=== PATIENT | female | born 1980 | race Two or more races ===

== ENCOUNTER 2016-08-22 22:04 | Emergency (ER) | payer SELFPAY ==
[2016-08-22] MEDS ORDERED: VANCOMYCIN HCL INJ 1000 MG VIAL IV ONE (22:21)
[2016-08-22] MEDS ORDERED: NORMAL SALINE 1000 ML 1,000 ML IV ONE (22:22)
[2016-08-22] MEDS ORDERED: PIPERACILLIN/TAZOBACTAM 3.375 GM VIAL IV ONE (22:22)
--- NOTE | 2016-08-22 22:27 | ER Document Report ---
ED General - General Stated Complaint: POSSIBLE INFECTION Notes: Patient is a 36-year-old female who presents with complaint of possible abdominal infection. Patient had surgery done a week ago Thursday and . She had her lap band removed. Her LAP-BAND was initially placed in [place] as well. Patient is having fevers. She says she start from sick on Thursday. Then started having fevers. Her doctor [place] told her still okay to come home. Since, now is gone worse and now she's had pus coming from her lower laparoscopic incision with redness around the wound and she's had fevers. Fever of 101.8 when paramedics arrived. Worsening pain tonight. Past Medical History - Social History Smoking Status: Never Smoker Frequency of alcohol use: None Drug Abuse: None Family History: Reviewed & Not Pertinent Review of Systems - Review of Systems Notes: My Normal Review Basic REVIEW OF SYSTEMS: CONSTITUTIONAL : Denies fever, chills, or sweats. Denies recent illness. EENT: Denies eye, ear, throat, or mouth pain or symptoms. Denies nasal or sinus congestion. RESPIRATORY: Denies cough, cold, or chest congestion. Denies shortness of breath, difficulty breathing, or wheezing. GASTROINTESTINAL: Moderate abdominal pain. Denies nausea, vomiting, or diarrhea. Denies constipation. Last BM: GENITOURINARY: Denies difficulty urinating, painful urination, burning, frequency, or blood in urine. MUSCULOSKELETAL: Denies neck or back pain or joint pain or swelling. SKIN: Denies rash or skin lesions. NEUROLOGICAL: Denies altered mental status or loss of consciousness. Denies headache. Denies weakness or paralysis or loss of use of either side. Denies problems with gait or speech. Denies sensory or motor loss. ALL OTHER SYSTEMS REVIEWED AND NEGATIVE. Physical Exam - Vital signs Vitals: Temp Pulse Resp BP Pulse Ox 101.8 F H 111 H 18 107/69 93 08/22/16 22:59 08/22/16 22:59 08/22/16 22:59 08/22/16 22:59 08/22/16 22:59 - Notes Notes: General Appearance: Well nourished, alert, cooperative, no acute distress, moderate obvious discomfort. Vitals: reviewed, See vital signs table. Head: no swelling or tenderness to the head Eyes: PERRL, EOMI, Conjuctiva clear Mouth: No decreasd moisture Lungs: No wheezing, No rales, No rhonci, No accessory muscle use, good air exchange bilaterally. Heart: Normal rate, Regular rythm, No murmur, no rub Abdomen: Normal BS, soft, No rigidity, moderate abdominal tenderness over the ventral abdomen, No guarding, no rebound, no abdominal masses, no organomegaly. Patient is for laparoscopic incisions. The most inferior incision is red and erythematous with purulent discharge. Extremities: strength 5/5 in all extremities, good pulses in all extremities, no swelling or tenderness in the extremities, no edema. Skin: warm, dry, appropriate color, no rash Neuro: speech clear, oriented x 3, normal affect, responds appropriately to questions. Course - Re-evaluation Re-evalutation: 08/22/16 23:51 Patient was seen by the surgeon, Dr. Wagner. He did incise and open of the wound. He did pack the wound with gauze. Says that the patient be placed on antibiotics and discharged home to follow-up in the ER in 2 days for wound check and then to follow-up early next week at the surgery clinic. 08/23/16 05:51 - Vital Signs Vital signs: Temp Pulse Resp BP Pulse Ox 100.8 F H 111 H 17 102/74 96 08/23/16 00:30 08/22/16 22:59 08/23/16 03:30 08/23/16 03:30 08/23/16 03:30 - Laboratory Result Diagrams: 08/22/16 22:57 08/22/16 22:57 Laboratory results interpreted by me: 08/22/16 08/22/16 22:57 22:57 WBC 14.9 H RBC 3.49 L Hgb 8.7 L Hct 26.3 L MCV 75 L MCH 24.9 L RDW 18.4 H Plt Count 487 H Band Neutrophils % 2 L Abs Neuts (Manual) 11.6 H Sodium 135.3 L Chloride 97 L Albumin 3.4 L - Transfer of Care Notes: 08/23/16 05:51 Patient is feeling better on reevaluation. Her fever is down. Heart rate is improved. Blood pressure is normal. Doctor tomorrow did open up the incision site and drain the abscess. Patient to return to ER in 2 days for recheck the wound. I encourage her to return to the ER immediately if she has recurrent fevers not responding to Tylenol, vomiting, or if she feels that she is worsening in any way. Patient agrees with plan and will be discharged home. Dictation of this chart was performed using voice recognition software; therefore, there may be some unintended grammatical errors. Discharge - Discharge Clinical Impression: Post op infection Qualifiers: Encounter type: initial encounter Qualified Code(s): T81.4XXA - Infection following a procedure, initial encounter Condition: Good Disposition: HOME, SELF-CARE Additional Instructions: Please return to the ER immediately if you develop recurrent fevers not responding to tylenol, vomiting, or if you feel that you are worsening. Please take the antibiotics we prescribed you. Please return to ER in 2 days so we can reevaluate your wound. Please make an appointment Thursday to follow- up with the surgery clinic. Please stop taking the antibiotics that were prescribed in [place]. Prescriptions: Cephalexin [Keflex] 500 mg PO TID #21 capsule Clindamycin HCl 300 mg PO ASDIR #56 capsule Referrals: JESSICA DANIELS MD [ACTIVE STAFF] - 08/25/16
[2016-08-22] MEDS ORDERED: MORPHINE SULFATE 10 MG/ML INJ IV ONE (22:37)
[2016-08-22 23:14] LABS: HEMATOCRIT 26.3 % (36.0-47.0); HEMOGLOBIN 8.7 g/dL (12.0-15.5); HGB HCT DIFFERENCE -0.2; MEAN CORPUSCULAR HEMOGLOBIN 24.9 pg (27.0-33.4); MEAN CORPUSCULAR HGB CONC 33.1 g/dL (32.0-36.0); MEAN CORPUSCULAR VOLUME 75 fl (80-97); RED BLOOD COUNT 3.49 10^6/uL (3.72-5.28); RED CELL DISTRIBUTION WIDTH 18.4 % (11.5-14.0); WHITE BLOOD COUNT 14.9 10^3/uL (4.0-10.5)
[2016-08-22 23:27] LABS: ALANINE AMINOTRANSFERASE 23 U/L (9-52); ALBUMIN 3.4 g/dL (3.5-5.0); ALKALINE PHOSPHATASE 111 U/L (38-126); ANION GAP 11 (5-19); ASPARTATE AMINO TRANSFERASE 30 U/L (14-36); BILIRUBIN,DIRECT 0.2 mg/dL (0.0-0.4); BILIRUBIN,TOTAL 0.8 mg/dL (0.2-1.3); BLOOD UREA NITROGEN 10 mg/dL (7-20); CALCIUM 9.1 mg/dL (8.4-10.2); CARBON DIOXIDE 27 mmol/L (22-30); CHLORIDE 97 mmol/L (98-107); CREATININE RESULT 0.52 mg/dL (0.52-1.25); GLUCOSE 106 mg/dL (75-110); SODIUM 135.3 mmol/L (137-145); TOTAL PROTEIN 6.9 g/dL (6.3-8.2)
[2016-08-22 23:36] LABS: BAND NEUTROPHILS % (MANUAL) 2 % (3-5); BASOPHILS % (MANUAL) 1 % (0-2); EOSINOPHILS % (MANUAL) 0 % (0-6); LYMPHOCYTES % (MANUAL) 16 % (13-45); TOTAL CELLS COUNTED 100
[2016-08-22 23:40] LABS: HYPOCHROMASIA 1+; MICROCYTOSIS 1+; POLYCHROMASIA 1+
[2016-08-22 23:41] LABS: ANISOCYTOSIS 2+; ROULEAUX 1+; STOMATOCYTES SLIGHT
--- NOTE | 2016-08-23 00:28 | OPERATIVE REPORT E ---
Operative Report NAME: SHAKEEL COTTON : 1980 AGE: 36Y DATE OF SURGERY: 08/23/2016 ROOM: DATE OF VISIT: August 23, 2016. HISTORY OF PRESENT ILLNESS AND PROCEDURE: This 36-year-old female went to [facility] on August 16, to have removal of a lap band. The patient underwent this procedure and was sent home and flew back to the [facility] on August 18. The patient returned to the [facility] on August 18, and noted tenderness and redness of the wound that was most inferior. The patient presented to the emergency room complaining of fever and redness and purulent discharge from the most inferior of the laparoscopic wounds. On examination, the most inferior of the 5 laparoscopic incisions was red, tender with increased warmth and fluctuance. The patient states that there was drainage when she sat up at home. There is a small amount of purulent noted and it is foul smelling. IMPRESSION: WOUND INFECTION. At the time of my visit, I recommended that we remove the stitches and open the wound to drain the pus. The patient's sutures were removed and the wound was opened and approximately 15-20 mL of green, foul smelling purulent material emanated. The infection extended down to the fascia wall only and after expressing all the pus and irrigating the wound with normal saline there was no further discharge. The wound was then packed with 1/2 inch plain Iodoform packing and covered with 4 x 4 and tape. The patient tolerated this procedure well and will be seen in the emergency room for wound check next week. DICTATING PHYSICIAN: KORINA TSANG M.D. [id number] PHY#: [id number] ID: [id number] JOB#: [id number] ACCT: [id number] cc:KORINA TSANG M.D. >
[2016-08-23] MEDS ORDERED: ONDANSETRON HCL INJ/PF 4 MG/2 ML SDV IV ONE (01:20)
[2016-08-23] MEDS ORDERED: NORMAL SALINE 1000 ML 1,000 ML IV ONE (01:20)
[2016-08-23] MEDS ORDERED: HYDROCODONE/ACETAMINOPHEN 5-325 MG TABLET PO ONE (03:05)
[2016-08-23] MEDS ORDERED: HYDROCODONE/ACETAMINOPHEN 5-325 MG 6 TAB/DSPK PO PRN (03:05)
[2016-08-23 03:31] VITALS: BP 102/74
== END 2016-08-23 03:49 | disposition home or self-care (01) ==
LOC: ER 22:04
PROC: 0J980ZZ Drainage of Abdomen Subcutaneous Tissue and Fascia, Open Approach (ICD-10-PCS; principal; 2016-08-22)
DX: T81.4XXA Infection following a procedure, initial encounter (principal); R50.9 Fever, unspecified
CPT/HCPCS: 99284; 96361; 96375; 96365; 96366; 96367; 36415; 87040; 87070; 87205; 85025; 87075; 87077; 80053; 10180; J2270; J7030; J3370; J2543

== ENCOUNTER 2016-08-23 20:28 | Inpatient (IN) | payer SELFPAY ==
[2016-08-23] MEDS ORDERED: ONDANSETRON 4 MG TAB.RAPDIS PO ONE (20:37)
[2016-08-23] MEDS ORDERED: IBUPROFEN 800 MG TABLET PO ONE (20:37)
--- NOTE | 2016-08-23 20:43 | ER Document Report ---
ED Medical Screen (RME) - General Chief Complaint: Wound Recheck Stated Complaint: REVISIT WOUND CHECK Mode of Arrival: Wheelchair Information source: Patient Notes: Patient returns emergency department with abdominal pain wound infection. She reports foul-smelling discharge. Patient was evaluated and treated for same this morning. Patient reports she felt better after leaving but started having pain again this evening. Took norco at 1830. Patient temp was 102.3. Temp here 101. 7. Pt had lap band reversal done last week in [place]. I have greeted and performed a rapid initial assessment of this patient. A comprehensive ED assessment and evaluation of the patient, analysis of test results and completion of the medical decision making process will be conducted by additional ED providers. TRAVEL OUTSIDE OF THE [place] IN LAST 30 DAYS: Yes COUNTRY TRAVELED TO/FROM: [place] Past Medical History Endocrine Medical History: Reports: Hx Diabetes Mellitus Type 2 Renal/ Medical History: Denies: Hx Peritoneal Dialysis Past Surgical History: Reports: Hx Abdominal Surgery - lap band 2008, removed 2016, Hx Appendectomy, Hx Cholecystectomy, Hx Gynecologic Surgery - ovarian cyst rupture repair, Hx Oral Surgery - wisdom, Hx Tubal Ligation - Immunizations Hx Diphtheria, Pertussis, Tetanus Vaccination: Yes Physical Exam - Vital signs Vitals: Temp Pulse Resp BP Pulse Ox 101.7 F H 133 H 20 114/76 98 08/23/16 20:33 08/23/16 20:33 08/23/16 20:33 08/23/16 20:33 08/23/16 20:33 Course - Vital Signs Vital signs: Temp Pulse Resp BP Pulse Ox 101.7 F H 133 H 20 114/76 98 08/23/16 20:33 08/23/16 20:33 08/23/16 20:33 08/23/16 20:33 08/23/16 20:33
[2016-08-23 21:15] LABS: MEAN CORPUSCULAR HEMOGLOBIN 24.9 pg (27.0-33.4); MEAN CORPUSCULAR HGB CONC 33.4 g/dL (32.0-36.0); MEAN CORPUSCULAR VOLUME 75 fl (80-97); RED BLOOD COUNT 3.62 10^6/uL (3.72-5.28); RED CELL DISTRIBUTION WIDTH 18.8 % (11.5-14.0); WHITE BLOOD COUNT 16.7 10^3/uL (4.0-10.5)
[2016-08-23 21:22] LABS: APPEARANCE,URINE CLEAR; BILIRUBIN,URINE NEGATIVE (NEGATIVE); GLUCOSE, URINE NEGATIVE (NEGATIVE); KETONES,URINE NEGATIVE (NEGATIVE); LEUKOCYTE ESTERASE,URINE NEGATIVE (NEGATIVE); NITRITE,URINE NEGATIVE (NEGATIVE); PROTEIN,URINE NEGATIVE (NEGATIVE); UROBILINOGEN,URINE NEGATIVE mg/dL (<2.0)
[2016-08-23 21:27] LABS: ALANINE AMINOTRANSFERASE 35 U/L (9-52); ALBUMIN 3.6 g/dL (3.5-5.0); ALKALINE PHOSPHATASE 168 U/L (38-126); ANION GAP 14 (5-19); ASPARTATE AMINO TRANSFERASE 30 U/L (14-36); BILIRUBIN,DIRECT 0.2 mg/dL (0.0-0.4); BILIRUBIN,TOTAL 0.7 mg/dL (0.2-1.3); BLOOD UREA NITROGEN 8 mg/dL (7-20); CALCIUM 9.4 mg/dL (8.4-10.2); CARBON DIOXIDE 25 mmol/L (22-30); CHLORIDE 100 mmol/L (98-107); CREATININE RESULT 0.55 mg/dL (0.52-1.25); GLUCOSE 144 mg/dL (75-110); POTASSIUM 3.9 mmol/L (3.6-5.0); SODIUM 139.1 mmol/L (137-145); TOTAL PROTEIN 7.2 g/dL (6.3-8.2)
[2016-08-23 21:33] LABS: BAND NEUTROPHILS % (MANUAL) 2 % (3-5); BASOPHILS % (MANUAL) 0 % (0-2); EOSINOPHILS % (MANUAL) 2 % (0-6); LYMPHOCYTES % (MANUAL) 7 % (13-45); TOTAL CELLS COUNTED 100
[2016-08-23 21:35] LABS: POLYCHROMASIA SLIGHT; TOXIC GRANULATION SLIGHT
[2016-08-23 21:36] LABS: ANISOCYTOSIS 2+; HYPOCHROMASIA 1+; MICROCYTOSIS 1+
[2016-08-23] MEDS ORDERED: PIPERACILLIN/TAZOBACTAM 3.375 GM VIAL IV ONE (22:59)
[2016-08-23] MEDS ORDERED: RINGERS SOLUTION,LACTATED 1,000 ML IV ONE (22:59)
[2016-08-23] MEDS ORDERED: VANCOMYCIN HCL INJ 1000 MG VIAL IV ONE (22:59)
[2016-08-23] MEDS ORDERED: MORPHINE SULFATE 10 MG/ML INJ IV ONE (23:05)
[2016-08-23] MEDS ORDERED: ONDANSETRON HCL INJ/PF 4 MG/2 ML SDV IV ONE (23:05)
--- NOTE | 2016-08-23 23:06 | ER Document Report ---
ED General - General Chief Complaint: Wound Recheck Stated Complaint: REVISIT WOUND CHECK Mode of Arrival: Wheelchair Information source: Patient, [facility] Records Notes: This is a 36-year-old female with a history of diet-controlled diabetes who presents as a return visit for worsening symptoms from a postop wound infection on her abdomen. Patient is post op day #8 status post laparoscopic LAP-BAND reversal done in [place]. She presented to the emergency department last night with concern for abdominal pain and fever. At that time it was noted that one of her left scalp incision was infected with an abscess. The incision was opened and purulent drainage was expressed. The wound was packed and patient was started on oral antibiotics to include clindamycin and Keflex. She states that she has been compliant with her antibiotics however this evening at about 1830 she developed a fever of 102.3 at home. Also she has had increasing lower abdominal pain which she states has become much worse tonight. She has had nausea but no vomiting. She did have a bowel movement earlier today which she describes as hard. Her last oral intake was at about 1630 tonight and was a few bites of chicken and mashed potatoes. TRAVEL OUTSIDE OF THE [place] IN LAST 30 DAYS: Yes COUNTRY TRAVELED TO/FROM: [place] - Related Data Allergies/Adverse Reactions: No Known Allergies Allergy (Unverified 08/23/16 23:04) Past Medical History - General Information source: Patient - Social History Smoking Status: Never Smoker Chew tobacco use (# tins/day): No Frequency of alcohol use: None Drug Abuse: None Family History: Reviewed & Not Pertinent Patient has suicidal ideation: No Patient has homicidal ideation: No Endocrine Medical History: Reports: Hx Diabetes Mellitus Type 2 Renal/ Medical History: Denies: Hx Peritoneal Dialysis Past Surgical History: Reports: Hx Abdominal Surgery - lap band 2008, removed 2016, Hx Appendectomy, Hx Cholecystectomy, Hx Gynecologic Surgery - ovarian cyst rupture repair, Hx Oral Surgery - wisdom, Hx Tubal Ligation - Immunizations Hx Diphtheria, Pertussis, Tetanus Vaccination: Yes Review of Systems - Review of Systems Notes: REVIEW OF SYSTEMS: CONSTITUTIONAL : As per history of present illness EENT: Denies eye, ear, throat, or mouth pain or symptoms. Denies nasal or sinus congestion. CARDIOVASCULAR: Denies chest pain. RESPIRATORY: Denies cough, cold, or chest congestion. Denies shortness of breath, difficulty breathing, or wheezing. GASTROINTESTINAL: As per history of present illness GENITOURINARY: Mild dysuria 1 day. MUSCULOSKELETAL: Denies neck or back pain or joint pain or swelling. SKIN: Denies rash or skin lesions. HEMATOLOGIC : Denies easy bruising or bleeding. LYMPHATIC: Denies swollen, enlarged glands. NEUROLOGICAL: Denies altered mental status or loss of consciousness. Denies headache. PSYCHIATRIC: Denies anxiety or stress or depression. ALL OTHER SYSTEMS REVIEWED AND NEGATIVE. Physical Exam - Vital signs Vitals: Temp Pulse Resp BP Pulse Ox 101.7 F H 133 H 20 114/76 98 08/23/16 20:33 08/23/16 20:33 08/23/16 20:33 08/23/16 20:33 08/23/16 20:33 - Notes Notes: PHYSICAL EXAMINATION: GENERAL: Somewhat ill appearing and pale adult female who is pleasant and conversant and in no acute distress at this time. HEAD: Atraumatic, normocephalic. EYES: Pupils equal round and reactive to light, extraocular movements intact, sclera anicteric, conjunctiva are normal. ENT: nares patent, oropharynx clear without exudates. Mucous membranes somewhat dry. NECK: Normal range of motion, supple without lymphadenopathy LUNGS: Breath sounds clear to auscultation bilaterally and equal. No wheezes rales or rhonchi. HEART: Tachycardic rate, Regular rhythm without murmurs ABDOMEN: Soft, normoactive bowel sounds. Diffuse mild tenderness to palpation somewhat worse in the lower abdomen, but no guarding rebound or rigidity. No signs of peritonitis. Midline trochar site has been opened and packed and there is evidence of purulent drainage on the bandage. There is also a 3 cm area of surrounding erythema and induration. EXTREMITIES: Normal range of motion, no pitting or edema. NEUROLOGICAL: Cranial nerves grossly intact. No gross focal motor or sensory deficits appreciated. PSYCH: Normal mood, normal affect. SKIN: Warm, pale, normal turgor, no rashes or lesions noted. Course - Re-evaluation Re-evalutation: 08/23/16 23:05 Patient with clinical worsening despite oral antibiotics. At this time will initiate IV fluids, IV antibiotics, and proceed with CT of abdomen and pelvis. 08/24/16 00:[address] results with the surgeon chronic disease epidemiologist who will admit patient to the hospital - Vital Signs Vital signs: Temp Pulse Resp BP Pulse Ox 98.8 F 76 14 117/68 97 08/24/16 07:31 08/24/16 08:01 08/24/16 08:01 08/24/16 08:01 08/24/16 08:01 - Laboratory Result Diagrams: 08/23/16 20:55 08/23/16 20:55 Laboratory results interpreted by me: 08/23/16 08/23/16 08/23/16 20:55 20:55 20:55 WBC 16.7 H RBC 3.62 L Hgb 9.0 L Hct 27.0 L MCV 75 L MCH 24.9 L RDW 18.8 H Plt Count 550 H Seg Neuts % (Manual) 86 H Band Neutrophils % 2 L Lymphocytes % (Manual) 7 L Monocytes % (Manual) 2 L Metamyelocytes % 1 H Abs Neuts (Manual) 14.9 H Glucose 144 H Alkaline Phosphatase 168 H Urine Blood SMALL H Crossmatch 08/24/16 01:22 WBC RBC Hgb Hct MCV MCH RDW Plt Count Seg Neuts % (Manual) Band Neutrophils % Lymphocytes % (Manual) Monocytes % (Manual) Metamyelocytes % Abs Neuts (Manual) Glucose Alkaline Phosphatase Urine Blood Crossmatch See Detail Discharge - Discharge Clinical Impression: Post op infection Qualifiers: Encounter type: initial encounter Qualified Code(s): T81.4XXA - Infection following a procedure, initial encounter Postoperative intra-abdominal abscess Qualifiers: Encounter type: initial encounter Qualified Code(s): T81.4XXA - Infection following a procedure, initial encounter Condition: Stable Disposition: ADMITTED INPATIENT Admitting Provider: Surgicalist - Dr Pack Unit Admitted: Telemetry
[2016-08-24] MEDS ORDERED: POTASSI CL 20 MEQ/D5-1/2NS 1L 1000 ML IV PRN (01:24)
[2016-08-24] MEDS ORDERED: MORPHINE SULFATE 10 MG/ML INJ IV PRN ×3 (01:25→06:58)
[2016-08-24] MEDS ORDERED: ONDANSETRON HCL INJ/PF 4 MG/2 ML SDV IV PRN ×2 (01:27→06:58)
[2016-08-24] MEDS ORDERED: PIPERACILLIN/TAZOBACTAM 3.375 GM VIAL IV PRN (01:31)
[2016-08-24] MEDS ORDERED: HYDROMORPHONE HCL INJ/PF 2 MG/ML AMPULE ONE (05:44)
[2016-08-24] MEDS ORDERED: FENTANYL CITRATE INJ/PF 100 MCG/2 ML AMPUL ONE (05:44)
[2016-08-24] MEDS ORDERED: ACETAMINOPHEN 100 ML IV ONE (05:45)
[2016-08-24] MEDS ORDERED: MIDAZOLAM 2 MG/2 ML INJ ONE (05:45)
[2016-08-24] MEDS ORDERED: PROPOFOL INJ 200 MG/20 ML VIAL IV ONE (05:45)
[2016-08-24] MEDS ORDERED: EPHEDRINE SULFATE INJ 50 MG/1 ML AMPULE ONE (05:45)
[2016-08-24] MEDS ORDERED: PROMETHAZINE HCL INJ 25 MG/1 ML VIAL IV PRN ×2 (06:58)
[2016-08-24] MEDS ORDERED: MEPERIDINE HCL/PF INJ 25 MG/1 ML DISP.SYRIN IV PRN (06:58)
[2016-08-24] MEDS ORDERED: DIPHENHYDRAMINE HCL 50 MG/ML VIAL IV PRN (06:58)
[2016-08-24] MEDS ORDERED: FENTANYL CITRATE INJ/PF 100 MCG/2 ML AMPUL IV PRN ×3 (06:58)
[2016-08-24] MEDS ORDERED: DEXMEDETOMIDINE INJ 80 MCG/20 ML VIAL IV ONE (07:57)
--- NOTE | 2016-08-24 09:03 | HISTORY AND PHYSICAL E ---
History and Physical NAME: SHAKEEL COTTON : 1980 AGE: 36Y ADMITTED: 08/24/2016 ROOM: 425 CHIEF COMPLAINT: This pleasant female patient unfortunately presented to the emergency room. Actually on Thursday, she came here for an apparent abdominal wound infection. 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 HISTORY OF PRESENT ILLNESS: She had a history of gastric laparoscopic Lap-Band for weight loss surgery and then she had laparoscopic Lap-Band removal, was done in [place], she traveled back. It was done almost eight or nine days now and had a wound infection, drained in the emergency room, sent back home, now came back with increasing fever, pain, and not feeling well. Notes increasing abdominal pain in the mid abdomen. PAST MEDICAL HISTORY: History of obesity and she had weight loss surgery in [place], Lap-Band. Other surgeries, she had Lap-Band in 2008, removal nine days ago. 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 No other medical history. SURGICAL HISTORY: As I described. FAMILY HISTORY: Nothing relevant. REVIEW OF SYSTEMS: As per examination. PHYSICAL EXAMINATION: VITAL SIGNS: She had a temperature of 101 in the emergency room. vitals when she came in was 139. After giving fluids, it came down to 90. Blood pressure remained stable now, 110 systolic. HEAD AND NECK: No lymphadenopathy. No thyromegaly. RESPIRATORY: Both lungs are clear to auscultation. CARDIOVASCULAR: Both sounds are regular. No murmurs. No gallops. ABDOMEN: Soft. Tender in the mid abdomen with an open wound draining pus. DIAGNOSTICS: She had labs, which revealed white count of 16.7, hemoglobin 9.0. Serum creatinine, BMP appeared to be normal *------*. The CT scan of abdomen and pelvis done in the emergency room revealed there is abdominal wall *------* soft tissue abscess extending from distal left of midline into the rectus abdominis muscle into upper abdomen measuring about 6 to 7 cm. Even though there is no abscess very close to the stomach, there is an anterior left upper quadrant abscess about 11 cm. Basically, she has an intraabdominal abscess extending in the left upper quadrant area extending to the intraabdominal muscles. IMPRESSION: Overall, she has intraabdominal abscess in the closed abdominal wall. I would be concerned about a gastric leak ulcer at this point. Since she is septic and she has no primary surgeon here, I think she will need an immediate intervention, so I am admitting to the hospital, starting on Zosyn IV, resuscitation, plan for a laparoscopy, drainage, abdominal wall drainage of abscesses. Care plan explained to the patient and the patient's family. DICTATING PHYSICIAN: BILL GUILLEN M.D. [id number] PHY#: [id number] ID: [id number] JOB#: [id number] ACCT: [id number] cc: >
[2016-08-24] MEDS: ENOXAPARIN SODIUM INJ 40 MG/0.4 ML DISP.SYRIN SUBCUT SCH (09:07)
--- NOTE | 2016-08-24 11:53 | PROGRESS NOTE E ---
Progress Note NAME: SHAKEEL COTTON : 1980 AGE: 36Y DATE: 08/24/2016 ROOM: 425 SUBJECTIVE: The patient is sleepy following her surgery this morning. A large subcutaneous abscess was drained in the midabdominal wall. She is status post removal of a lap band in [place]. The patient returned to home about a week ago. She started complaining of pain in the mid abdomen, and this morning early she underwent drainage of abdominal abscess. OBJECTIVE: VITAL SIGNS: Stable. Patient is currently afebrile, temperature 98.3. Pulse 73. Blood pressure 121/74. LUNGS: Clear to auscultation bilaterally. HEART: Regular rhythm and rate. ABDOMEN: Flat. Soft. Nondistended. Tender in the midline with a dressing tainted with blood. Positive bowel sounds. No peritoneal signs. ASSESSMENT: 1. STATUS POST LAP BAND REMOVAL IN [place] 9 DAYS AGO. 2. POSTOP DAY NUMBER ZERO FOLLOWING DRAINAGE OF ABDOMINAL WALL ABSCESS; A LAPAROSCOPY WAS DONE PRIOR TO THIS PROCEDURE, AND NO INTRAABDOMINAL FLUID COLLECTION WAS IDENTIFIED. PLAN: 1. Keep the patient n.p.o. 2. Change IV fluids to normal saline 150 mL/hr. 3. Obtain a small bowel follow-through tomorrow to rule out perforation at the level of the stomach tomorrow DICTATING PHYSICIAN: ALEX MARRUFO M.D. [id number] ZOËY#: [id number] ID: [id number] JOB#: [id number] ACCT: [id number] cc: > MTDD
[2016-08-24] MEDS ORDERED: HYDROMORPHONE HCL 30 MG/60 ML RTUINJ IV PRN (12:01)
[2016-08-24] MEDS: PIPERACILLIN SODIUM/TAZOBACTAM 3.375 GM in NORMAL SALINE 100 ML IV SCH ×3 (12:03→21:43)
[2016-08-24] MEDS ORDERED: METOCLOPRAMIDE HCL INJ/PF 10 MG/2 ML SDV ONE (15:15)
[2016-08-24] MEDS ORDERED: DEXAMETHASONE SOD PHOSPHATE INJ 4 MG/1 ML VIAL ONE (15:15)
[2016-08-24] MEDS ORDERED: NEOSTIGMINE METHYLSULFATE 10 MG/10 ML VIAL ONE (15:15)
[2016-08-24] MEDS ORDERED: GLYCOPYRROLATE INJ 0.4 MG/2 ML VIAL ONE (15:15)
[2016-08-24] MEDS ORDERED: ROCURONIUM BROMIDE INJ 50 MG/5 ML VIAL IV ONE (15:15)
[2016-08-24] MEDS ORDERED: ONDANSETRON HCL INJ/PF 4 MG/2 ML SDV ONE (15:15)
[2016-08-24] MEDS ORDERED: KETOROLAC TROMETHAMINE 60 MG/2 ML SDV ONE (15:15)
[2016-08-24] MEDS ORDERED: LIDOCAINE 2% INJ-PF (20 MG/ML) 10 ML AMPUL ONE (15:15)
[2016-08-24] MEDS: NORMAL SALINE 1000 ML 1,000 ML IV PRN (17:44)
--- NOTE | 2016-08-24 20:18 | OPERATIVE REPORT E ---
Operative Report NAME: SHAKEEL COTTON : 1980 AGE: 36Y DATE OF SURGERY: 08/24/2016 ROOM: 425 PREOPERATIVE DIAGNOSES: Intraabdominal abscess and also abdominal wall abscess after having an infected gastric port removed for gastric band removed, gastric port, infected port removed, for weight loss surgery. It was done in [place], her home country. On postop day 9, she presented to the emergency room at [facility]. POSTOPERATIVE DIAGNOSES: 1. Abdominal wall abscess, large. 2. Small intraperitoneal abscess. OPERATION: 1. Laparoscopic drainage of intraabdominal and intraperitoneal abscess along with a washout. 2. Open abdominal wall abscess also. SURGEON: BILL GUILLEN M.D. ANESTHESIA: General. HISTORY/INDICATIONS: The patient presented to the emergency room with a history of postop 9 days. She went to [place] to have the gastric port and gastric band removed. Apparently, she was told it was infected. She presented to the emergency room with acute abdominal pain, high fever, hypotension. She was resuscitated and started on IV antibiotics, taken to the operating room for drainage of these abscesses. Findings were positive for gastric leaks, gastric necrosis, possible complicated stomach in that situation requiring either a gastrectomy or other procedure later one. For this, she needed to be taken care of in the emergent state with a gastric bypass . All this was explained to the patient and the patient's family. Then she was taken to the operating room for this emergent intervention. DESCRIPTION OF PROCEDURE: The patient Initially, I performed laparoscopically by inserting a 5 mm with a Veress needle carefully to the right upper quadrant area this area. Another port was inserted in the left upper quadrant area under direct visualization. There was a large amount of hematoma, which was drained out and then hemoperitoneum drained out and there was a small amount of purulent fluid and the left upper quadrant area was flushed and the abdomen wall drained out completely. After the abdominal washout was given, I did not want to explore the stomach at this point, because a lot of inflammation between the omentum and stomach. After the exploration of this and drainage and washout, I left a VLADISLAV drain in this area____. After that, now, the remaining abdominal wall abscess just to the left of the umbilical area, about a 10 cm pocket extending subfascially was explored. The fascia was opened for 2 cm and the subfascial component was irrigated and suctioned out and then the remaining abdominal wall abscess was drained out into the area, irrigated and suctioned out. Complete hemostasis secured. Wounds were packed and dressings were applied. The patient was stable throughout the operation in stable condition. Postoperatively, she will be kept on IV p.o. fluids, IV antibiotic, and she will have an upper GI study done to rule out any gastric leak. All of this was signed out to the oncoming/incoming surgeon. DICTATING PHYSICIAN: BILL GUILLEN M.D. [id number] PHY#: [id number] ID: [id number] JOB#: [id number] ACCT: [id number] cc:BILL GUILLEN M.D. >
[2016-08-25] MEDS: NORMAL SALINE 1000 ML 1,000 ML IV PRN (06:09)
[2016-08-25] MEDS: PIPERACILLIN SODIUM/TAZOBACTAM 3.375 GM in NORMAL SALINE 100 ML IV SCH ×3 (06:09→22:23)
[2016-08-25 06:46] LABS: HEMATOCRIT 22.3 % (36.0-47.0); HGB HCT DIFFERENCE -0.4; MEAN CORPUSCULAR HEMOGLOBIN 24.8 pg (27.0-33.4); MEAN CORPUSCULAR HGB CONC 32.9 g/dL (32.0-36.0); MEAN CORPUSCULAR VOLUME 75 fl (80-97); RED BLOOD COUNT 2.95 10^6/uL (3.72-5.28); RED CELL DISTRIBUTION WIDTH 19.1 % (11.5-14.0); WHITE BLOOD COUNT 14.7 10^3/uL (4.0-10.5)
[2016-08-25 06:51] LABS: HEMOGLOBIN 7.3 g/dL (12.0-15.5)
[2016-08-25 06:54] LABS: ANION GAP 11 (5-19); BLOOD UREA NITROGEN 11 mg/dL (7-20); CALCIUM 8.4 mg/dL (8.4-10.2); CARBON DIOXIDE 24 mmol/L (22-30); CHLORIDE 106 mmol/L (98-107); CREATININE RESULT 0.45 mg/dL (0.52-1.25); GLUCOSE 84 mg/dL (75-110); POTASSIUM 4.3 mmol/L (3.6-5.0); SODIUM 141.3 mmol/L (137-145)
[2016-08-25] MEDS: ENOXAPARIN SODIUM INJ 40 MG/0.4 ML DISP.SYRIN SUBCUT SCH (07:57)
[2016-08-25] MEDS ORDERED: KETOROLAC TROMETHAMINE INJ/PF 30 MG/1 ML SDV ONE (08:57)
[2016-08-25 13:52] LABS: HEMATOCRIT 20.9 % (36.0-47.0); HGB HCT DIFFERENCE -0.2; MEAN CORPUSCULAR HEMOGLOBIN 24.8 pg (27.0-33.4); MEAN CORPUSCULAR HGB CONC 33.2 g/dL (32.0-36.0); MEAN CORPUSCULAR VOLUME 75 fl (80-97); RED CELL DISTRIBUTION WIDTH 18.8 % (11.5-14.0)
[2016-08-25 14:11] LABS: HEMOGLOBIN 6.9 g/dL (12.0-15.5)
[2016-08-25 14:19] LABS: BAND NEUTROPHILS % (MANUAL) 4 % (3-5); BASOPHILS % (MANUAL) 0 % (0-2); EOSINOPHILS % (MANUAL) 1 % (0-6); LYMPHOCYTES % (MANUAL) 20 % (13-45); MICROCYTOSIS 1+; NUCLEATED RED BLOOD CELLS 1 /100 WBC (0); POLYCHROMASIA 1+; ROULEAUX 1+; TOTAL CELLS COUNTED 100
[2016-08-25 14:20] LABS: ANISOCYTOSIS 2+; OVALOCYTES 1+; POIKILOCYTOSIS 1+; TOXIC GRANULATION SLIGHT
[2016-08-25] MEDS ORDERED: NORMAL SALINE 1000 ML 1,000 ML IV PRN (15:33)
--- NOTE | 2016-08-25 15:49 | PROGRESS NOTE E ---
Progress Note NAME: SHAKEEL COTTON : 1980 AGE: 36Y DATE: 08/25/2016 ROOM: 425 SUBJECTIVE: The patient has no complaints. Denies abdominal pain, nausea, vomiting. OBJECTIVE: VITAL SIGNS: All stable. The patient is afebrile 98.6, remaining vital signs within normal limits. FLUID BALANCE: Is and Os for the past 24 hours - intake is 7800, output 5300 of which 380 mL is from the drainage placed in the left abdomen. ABDOMEN: The abdomen is soft with midline wound clean, dry, intact. REVIEW OF LABORATORIES: White blood cell count down to 12, hemoglobin and hematocrit 6.9 and 20.9 compared to this morning 7.3 and 22.3, platelet count 475,000. Electrolytes: BUN and creatinine within normal limits. ASSESSMENT: 1. STATUS POST INCISION AND DRAINAGE OF ABDOMINAL WALL ABSCESS. 2. AN UPPER GI SERIES DONE TODAY IS NEGATIVE FOR ANY LEAK AT THE LEVEL OF THE AREA WHERE THE LAP BAND WAS PREVIOUSLY REMOVED. 3. DROP IN THE HEMOGLOBIN FROM YESTERDAY TO THIS MORNING WITH A RECENT HEMOGLOBIN OF 6.9 AND 20.9 COMPARED TO 7.3 AND 22.3. 4. PHYSICAL EXAM UNREMARKABLE. PLAN: 1. We will plan to check the patient's PT/INR. 2. We will give the patient 2 units of blood and check the hemoglobin and hematocrit 1 hour after the 2 units of blood have been transfused. 3. We will plan to have a stat bleeding scan as well. DICTATING PHYSICIAN: ALEX MARRUFO M.D. [id number] PHY#: [id number] ID: [id number] JOB#: [id number] ACCT: [id number] cc:ALEX MARRUFO M.D. >
[2016-08-25] MEDS: KETOROLAC TROMETHAMINE INJ/PF 30 MG/1 ML SDV IV PRN ×2 (16:04→22:30)
[2016-08-25 16:25] LABS: PARTIAL THROMBOPLASTIN TIME 29.1 SEC (23.5-35.8); PROTHROMBIN TIME 14.8 SEC (11.4-15.4)
[2016-08-25] MEDS ORDERED: DIPHENHYDRAMINE HCL 50 MG/ML VIAL ONE (22:14)
[2016-08-25] MEDS ORDERED: ACETAMINOPHEN 325 MG TABLET ONE (22:14)
[2016-08-25] MEDS ORDERED: ACETAMINOPHEN 325 MG TABLET PO PRN (22:21)
[2016-08-25] MEDS ORDERED: DIPHENHYDRAMINE HCL 50 MG/ML VIAL IV ONE ×2 (22:30)
[2016-08-25] MEDS ORDERED: ACETAMINOPHEN 325 MG TABLET PO ONE ×2 (22:30)
[2016-08-26] MEDS: KETOROLAC TROMETHAMINE INJ/PF 30 MG/1 ML SDV IV PRN ×2 (04:52→14:53)
[2016-08-26] MEDS: PIPERACILLIN SODIUM/TAZOBACTAM 3.375 GM in NORMAL SALINE 100 ML IV SCH ×2 (05:40→13:46)
[2016-08-26 06:05] LABS: HEMATOCRIT 27.7 % (36.0-47.0); HGB HCT DIFFERENCE 0.2; MEAN CORPUSCULAR HEMOGLOBIN 25.8 pg (27.0-33.4); MEAN CORPUSCULAR HGB CONC 33.4 g/dL (32.0-36.0); MEAN CORPUSCULAR VOLUME 77 fl (80-97); RED BLOOD COUNT 3.59 10^6/uL (3.72-5.28); RED CELL DISTRIBUTION WIDTH 18.8 % (11.5-14.0); WHITE BLOOD COUNT 12.7 10^3/uL (4.0-10.5)
[2016-08-26 06:26] LABS: ANION GAP 11 (5-19); BLOOD UREA NITROGEN 7 mg/dL (7-20); CALCIUM 8.6 mg/dL (8.4-10.2); CARBON DIOXIDE 25 mmol/L (22-30); CHLORIDE 105 mmol/L (98-107); CREATININE RESULT 0.44 mg/dL (0.52-1.25); GLUCOSE 79 mg/dL (75-110); POTASSIUM 3.7 mmol/L (3.6-5.0); SODIUM 140.6 mmol/L (137-145)
[2016-08-26 06:40] LABS: HEMOGLOBIN 9.3 g/dL (12.0-15.5)
[2016-08-26 06:42] LABS: BAND NEUTROPHILS % (MANUAL) 1 % (3-5); BASOPHILS % (MANUAL) 1 % (0-2); EOSINOPHILS % (MANUAL) 5 % (0-6); LYMPHOCYTES % (MANUAL) 20 % (13-45); TOTAL CELLS COUNTED 100
[2016-08-26 06:44] LABS: ANISOCYTOSIS 2+; HYPOCHROMASIA 1+; MICROCYTOSIS SLIGHT; OVALOCYTES SLIGHT; POIKILOCYTOSIS SLIGHT; POLYCHROMASIA SLIGHT
[2016-08-26] MEDS: ENOXAPARIN SODIUM INJ 40 MG/0.4 ML DISP.SYRIN SUBCUT SCH (07:40)
[2016-08-26 11:27] VITALS: BP 109/64
--- NOTE | 2016-08-26 13:36 | PROGRESS NOTE E ---
Progress Note NAME: SHAKEEL COTTON : 1980 AGE: 36Y DATE: 08/26/2016 ROOM: 425 SUBJECTIVE: The patient has no complaints. OBJECTIVE: VITAL SIGNS: Stable. Patient afebrile. Vital signs within normal limits. ABDOMEN: Soft. Abdominal incision is clean, dry and intact, granulating without odor or drainage. REVIEW OF LABORATORIES: White blood cell count 12. H and H 9.3 and 27.7. Platelet count 464. All the red blood cell indices, MCV, MCH, MCHC low. Electrolytes: BUN and creatinine within normal limits. PT, PTT, INR are normal; bleeding scan done yesterday negative ASSESSMENT: 1. STATUS POST INCISION AND DRAINAGE OF ABDOMINAL WALL ABSCESS, POSTOPERATIVE DAY NUMBER THREE. 2. ABDOMINAL WOUND APPEARS TO BE CLEAN, GRANULATING. 3. VITAL SIGNS ARE STABLE. PATIENT AFEBRILE. 4. OUTPUT FROM [place] DRAIN IS ABOUT 30 ML. 5. H AND H APPROPRIATELY INCREASED FOLLOWING THE INFUSION OF 2 UNITS OF BLOOD. 6. Iron deficient anemia PLAN: 1. Discharge to home today. 2. Dressing changes daily with wet-to-dry normal saline. 3. Iron and vitamin C p.o. twice a day for 2 months. 4. Return to the surgery clinic within a week. 5. Patient to be on oral antibiotics for 1 week. 6. Iron and vitamin C po x 2 months for her anemia DICTATING PHYSICIAN: ALEX MARRUFO M.D. [id number] PHY#: [id number] ID: [id number] JOB#: [id number] ACCT: [id number] cc: > MTDD
--- NOTE | 2016-08-26 14:13 | DISCHARGE SUMMARY E ---
Discharge Summary NAME: SHAKEEL COTTON : 1980 AGE: 36Y ADMITTED: 08/24/2016 DISCHARGED: 08/26/2016 FINAL DIAGNOSES: 1. Status post lap band removal ([place]). 2. Status post diagnostic laparoscopy and incision and drainage of anterior abdominal wall abscess on 08/24. 3. Iron deficiency anemia. PROCEDURES: 1. Incision and drainage of abdominal wall abscess on 08/24. 2. Administration of 2 units of blood. HOSPITAL COURSE: This is a 36-year-old female who underwent placement of lap band in [place] years ago. She returned to [place] to have lap band removed about 9 days prior to admission to this hospital. She was admitted on 08/24 with abdominal pain and a CAT scan of the abdomen and pelvis was done revealing an abdominal wall abscess in the mid-anterior abdomen wall and a small fluid collection within the peritoneal cavity worrisome for intraperitoneal abscess. The patient was taken to surgery on 08/24 and she underwent a diagnostic laparoscopy which ruled out the presence of an intraabdominal abscess. Also, she underwent drainage of the abdominal wall abscess with VLADISLAV drain placement. Her postop course was characterized by progressive improvement of her general conditions; however, her H and H dropped during the hospitalization to as low as 6.9 and 20.9 on 08/25. She received 2 units of blood, which brought up the H and H to 9.3 and 27.7, respectively on 08/26. Her vital signs remained stable. On the day of discharge, she had no complaints, her vital signs were stable, her physical exam was unremarkable, and the abdominal wound was clean and granulating without odor. The [place] drained placed in the abdominal wall abscess site was still draining bloody fluid with an output of 30 mL during the past 12 hours. DISCHARGE PLAN: The patient was discharged home on 08/26. She was given Augmentin 875 mg p.o. b.i.d. for 5 days. She was instructed to take iron over the counter 1 tablet p.o. twice a day together with vitamin C 500 mg p.o. b.i.d. over the counter for 2 months. She was instructed to remain active, to empty the [place] drain daily and to bring the record for the surgical office, and to schedule a surgical office appointment within a week. She was given regular diet. Physical activity as tolerated. Sponge bath only until the drain is removed. Afterward, she can shower and bathe once the wound is fully closed. DICTATING PHYSICIAN: ALEX MARRUFO M.D. [id number] PHY#: [id number] ID: [id number] JOB#: [id number] ACCT: [id number] cc:Rosie RICH N.P. > [facility]
[2016-08-26] MEDS ORDERED: INFLUENZA ADLT QUAD (36MOS+) 2016-17 VAC 0.5 ML SYR IM PRN (15:39)
== END 2016-08-26 16:54 | disposition home or self-care (01) | DRG 862 ==
LOC: ER 20:28 → EH 08-24 01:01 → UNDOADMIN 08-24 01:01 → EH 08-24 02:45 → 4S 08-24 02:49
PROVIDERS: ADMIT Colon & Rectal Surgery; ATTEND Colon & Rectal Surgery
PROC: 0W9F30Z Drainage of Abdominal Wall with Drainage Device, Percutaneous Approach (ICD-10-PCS; principal; 2016-08-24 06:00)
PROC: 30233N1 Transfusion of Nonautologous Red Blood Cells into Peripheral Vein, Percutaneous Approach (ICD-10-PCS; 2016-08-25)
PROC: 3E0234Z Introduction of Serum, Toxoid and Vaccine into Muscle, Percutaneous Approach (ICD-10-PCS; 2016-08-26)
DX: T81.4XXA Infection following a procedure, initial encounter (principal); K65.1 Peritoneal abscess; D50.9 Iron deficiency anemia, unspecified; E11.9 Type 2 diabetes mellitus without complications; Z23 Encounter for immunization; Z90.49 Acquired absence of other specified parts of digestive tract
CPT/HCPCS: 36415; 36430; 74177; 74247; 78278; 790; 80048; 80053; 81001; 83605; 84703; 85025; 85027; 85610; 85730; 86850; 86900; 86901; 86920; 87040; 90686; 94799; A9560; J0131; J1100; J1170; J1200; J1642; J1650; J1885; J2250; J2270; J2405; J2543; J2704; J2765; J3010; J3370; J3480; J3490; J7030; J7120; P9016; Q9969; S0119